=== PATIENT | female | born 1955 | race Two or more races ===

== ENCOUNTER → 2025-02-03 | Outpatient (CLI) | payer MEDICARE, MEDICAID, SELFPAY ==
--- NOTE | 2025-02-03 09:00 | XR_ITS ---
Examination: Breast ultrasound, unilateral, right complete Date and time of exam: February 03, 2025 0909 hours INDICATIONS: Mammogram September 30, 2024 13 mm mass right breast 6:00 position Technique: Real-time fry scale ultrasonographic imaging performed right breast including all 4 quadrants as well as nipple retroareolar and axillary region. Findings: 8:00 cyst 13 x 11 mm No solid nodules IMPRESSION: BI-RADS Category 2: Benign findings
--- NOTE | 2025-02-03 09:30 | XR_ITS ---
Examination: Diagnostic digital mammography, unilateral, right Computer aided detection 3-D breast Tomosynthesis, unilateral Date and time of exam: February 04, 2024 0932 hours INDICATIONS: Outside mammogram September 30, 2024 13 mm mass right breast 6:00 position Technique: Nonmagnified MLO, CC views of the right breast have been obtained, reconstructed from 3-D Tomosynthesis images. R2 computer aided detection program utilized for evaluation of suspicious masses and/or abnormal calcifications. 3-D Tomosynthesis images obtained. Findings: Scattered areas of fibroglandular density Circumscribed nodule 7:00 position right breast likely corresponding to 8:00 cyst described on ultrasound study today Impression: BI-RADS category 2: Benign findings Return to yearly follow-up mammography
== END | disposition home or self-care (01) ==
PROVIDERS: PCP Family Medicine; Referring Provider Family Medicine; Visit Provider Family Medicine
DX: R92.321 Mammographic fibroglandular density, right breast (principal); N63.15 Unspecified lump in the right breast, overlapping quadrants
CPT/HCPCS: 76641; 77061; 77065; G0279

== ENCOUNTER 2025-06-29 18:57 | Emergency (ER) | payer MEDICARE, MEDICAID, SELFPAY ==
--- NOTE | 2025-06-29 19:11 | XR_ITS ---
Examination: Fingers, left hand fourth digit 3 views Technique: AP, oblique, lateral views left hand fourth digit 3 views. Exam date and time: June 29, 20252009 hrs. Indications: Injury to the hand today with fourth digit pain. Findings: Severe osteopenia Acute nondisplaced fractures involving the proximal aspect of the proximal phalanx fourth digit No dislocation Impression: Acute fractures proximal phalanx fourth digit
[2025-06-29 19:58] VITALS: BP 164/92; PULSE 66; RESP 18; TEMP 36.6; O2SAT 97
--- NOTE | 2025-06-29 20:13 | PD.EDHAND ---
Upper Extremity Injury RME/HPI General Chief Complaint: Hand/Wrist Problems Stated Complaint: Left 4th digit swollen Time Seen by Provider: 06/29/25 20:11 Arrival date/time: 06/29/25 18:57 70F with no significant PMH presents to ED with L ring finger pain after it got caught in her dog's leash/chain. Limitations: no limitations Related Data Previous Rx's ?Medication ?Instructions ?Recorded ibuprofen 600 mg tablet 600 mg PO Q6H #30 tabs 11/07/23 meloxicam 7.5 mg tablet 7.5 mg PO QDAY #10 tabs 12/23/23 Allergies Allergy/AdvReac Type Severity Reaction Status Date / Time Sulfa (Sulfonamide Allergy Severe RASH Verified 06/29/25 19:02 Antibiotics) Review of Systems Review of Systems Systems Reviewed: All systems reviewed, normal except as documented Musculoskeletal Musculoskeletal: Reports as per HPI and Reports arthralgias Past Medical History Past Medical History CARDIAC: Negative Congestive Heart Failure RESPIRATORY: Negative Chronic Obstructive Pulmonary Disease (COPD) GENITOURINARY: Negative Renal Disease MUSCULOSKELETAL: Positive Musculoskeletal Disorders ENDOCRINE: Negative Diabetes Mellitus Type 1 or Diabetes Mellitus Type 2 Social History SMOKING STATUS: Current some day smoker ED Exam General Limitations: Present no limitations General appearance: Present alert and in no apparent distress Head Head exam: Present atraumatic Neck Neck exam: Present normal inspection, full ROM and trachea midline Chest Chest inspection: Present normal inspection and symmetric chest wall rise Expanded Upper Extremity Exam Hand exam: Present tenderness (L ring finger), swelling and ecchymosis Neurological Exam Neurological exam: Present alert and oriented X3 Psychiatric Psychiatric exam: Present normal affect and normal mood Skin Skin exam: Present warm, dry, intact and normal color Course Quality Measures none Orders Category Date Time Status Splint / Immobilizer STAT Care 06/29/25 21:12 Completed XR finger LT min 2V Stat Exams 06/29/25 19:11 Completed Vital Signs Vital signs: Vital Signs Temperature 98 F 06/29/25 19:58 Pulse Rate 66 06/29/25 19:58 Respiratory Rate 18 06/29/25 19:58 Blood Pressure 164/92 H 06/29/25 19:58 Pulse Oximetry (%) 97 06/29/25 19:58 Oxygen Delivery Method Room Air 06/29/25 19:58 O2 at 97% on RA and WNLs Extremity Injury MDM Narrative MDM Narrative:: 70F with no significant PMH presents to ED with L ring finger pain after it got caught in her dog's leash/chain. Physical exam reveals L ring finger swelling, bruising and tenderness. ROM somewhat limited. Patient is afebrile, calm, and alert. XR non-displaced L 4th finger fx. 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 Patient data External records reviewed:: [facility] previous records Clinical information provided by:: patient Social determinants that could affect healthcare access:: none Patient has the following chronic illnesses:: none How is presenting disease/condition affected by chronic disease/condition?: no chronic disease Evaluation data The following diagnostics were reviewed and interpreted by me:: radiology exam(s) Lab and/or radiology exams considered but not ordered:: ordered Interpretation Summary: above Medications / Prescriptions Medications or Prescriptions considered but not ordered:: not ordered Medication administrations:: n/a Consultations Consultation(s) initiated? (list below): No Diagnosis Upper Extremity Injury Differential Diagnosis: sprain and strain of wrist, fracture of wrist, finger sprain, dislocation of finger, fracture of hand and other (finger fx) Most likely diagnosis given after review of the tests above:: finger fx Admission Indicated Admission indicated?: not indicated Admission Request Was there a request for admission?: No Disposition Plan Disposition Plan: Discharge Discharge Attestation Discharge Attestation: The patient and all family members were given an opportunity to ask questions and understood the discharge instructions. Discharge instructions specifically effects, indications for sooner follow up or return to the emergency department, and the expected course of current diagnosis. Patient condition: Stable Discharge Plan Plan Patient Disposition: HOME (Self Care) Discharge Disposition comment: Stable Prescriptions/Referrals Prescriptions/Med Rec: No Action ibuprofen 600 mg tablet 600 mg PO Q6H Qty: 30 0RF meloxicam 7.5 mg tablet 7.5 mg PO QDAY Qty: 10 0RF Referrals: Solo Yousif MD [Primary Care Provider, Family Practice] - In 1 week Problem List Clinical Impression: Finger fracture Patient/Caregiver Discharge Instructions Education Materials: ED Fracture, Finger, Closed Additional Instructions: Please follow-up with PCP within 24-48 hours and return immediately if symptoms worsen. Print Language: Estonian Stand Alone Forms: Patient Portal Info Letter NICKI/JESSICA Supervising Physician RUPERTO Supervising Physician: Dr. Gipson
== END 2025-06-29 21:17 | disposition home or self-care (01) ==
PROVIDERS: Emergency Provider Emergency Medicine; PCP Family Medicine
DX: S62.645A Nondisplaced fracture of proximal phalanx of left ring finger, initial encounter for closed fracture (principal); W23.1XXA Caught, crushed, jammed, or pinched between stationary objects, initial encounter
CPT/HCPCS: 73140; 99284